=== PATIENT | male | born 1965 | race Caucasian/White ===

== ENCOUNTER → 2017-06-22 | Outpatient (CLI) | payer OTHER ==
[~2017-06-22] MED LIST: ALPR.25 PO; AMIT10 PO; DIAZ5 PO; METO5TAB PO; PANT20 PO; PERC5TAB12 PO; PREG75 PO; PRIN20TA2 PO
--- NOTE | 2017-06-27 12:15 | RSPPFT ---
DATE OF PROCEDURE: 06/22/17 COMMENTS: Spirometry with FVC of 4.3, FEV1 of 3.5, FEV1/FVC ratio at 82%. Slow vital capacity is 96% of predicted. TLC is 90%. Diffusion capacity is normal. IMPRESSION: 1. No evidence of airways obstruction or restriction. 2. Normal diffusion capacity. 3. Non-significant response to acutely inhaled bronchodilator.
== END ==
LOC: HRSP 11:04
PROVIDERS: ATTEND Internal Medicine Sleep Medicine
DX: R06.89 Other abnormalities of breathing (principal)
CPT/HCPCS: 94060; 94726; 94729